=== PATIENT | female | born 1960 | race Caucasian/White ===

== ENCOUNTER 2016-09-20 09:30 | Inpatient (IN) | payer OTHER ==
--- NOTE | 2016-09-20 09:59 | PDOC ---
History of Present Illness <Edwin Olguin - Last Filed: 09/20/16 14:49> - History of Present Illness Initial Comments: 09/20/16 11:23 The pt is a 55 year old [place]ib[place] speaking female with a PMH of HTN, GERD, anxiety who presents to ED today complaining of palpitations and intermittent chest pain that is present since December 2015. She states that is got worse in the past month. Yesterday her chest pain lasted 30 minutes, mid chest, no radiation , no associated factors. Usually it lasts minutes and is associated with palpitations. She also states that she feels dizzy and has pain in LE B/L when ambulating which prevents her from her daily activities. She also reports dyspnea with exertion. She had ECHO done in 2016 and stress test that was nl. The pt denies chest pain now, SOB, LOC, N/V, diarrhea, blood in stool. She denies fever, chills, dysuria, increased frequency, urgency. She has PCP in [place] who prescribed her Lisinopril but she is not compliant due to insurance problems. Additionally she takes medications prescribed in [facility], like Kardiogran 5 mg , Mezim Forte <Diane Rubi - Last Filed: 09/20/16 15:20> - General Chief Complaint: Palpitations Stated Complaint: SOB, PALPITATIONS Time Seen by Provider: 09/20/16 09:47 Past History <Edwin Olguin - Last Filed: 09/20/16 14:49> - Past Medical History HTN: Yes - Surgical History Appendectomy: Yes - Psycho/Social/Smoking Cessation Hx Suicidal Ideation: No Smoking History: Never smoked Information on smoking cessation initiated: No Hx Alcohol Use: Yes (social) Drug/Substance Use Hx: No Substance Use Type: Alcohol <Diane Rubi - Last Filed: 09/20/16 15:20> - Past Medical History Allergies/Adverse Reactions: Allergies Allergy/AdvReac Type Severity Reaction Status Date / Time No Known Allergies Allergy Verified 09/20/16 09:39 Home Medications: Ambulatory Orders Alprazolam [Xanax] 0.25 mg PO Q12H #60 tablet MDD 2 01/01/16 Ranitidine [Zantac -] 150 mg PO BID #60 tablet 01/01/16 Review of Systems - Review of Systems Able to Perform ROS?: Yes Comments:: 09/20/16 11:36 REVIEW OF SYSTEMS CONSTITUTIONAL: Absent: fever, chills, diaphoresis, generalized weakness, malaise, loss of appetite, weight change HEENT: Absent: rhinorrhea, nasal congestion, throat pain, throat swelling, difficulty swallowing CARDIOVASCULAR: palpitations, chest pain, Absent: syncope, irregular heart rate, lightheadedness, peripheral edema RESPIRATORY: Absent: cough, shortness of breath, dyspnea with exertion, orthopnea, wheezing, stridor, hemoptysis GASTROINTESTINAL: mild epigastric pain Absent: abdominal distension, nausea, vomiting, diarrhea, constipation, melena, hematochezia GENITOURINARY: Absent: dysuria, frequency, urgency, hesitancy, hematuria, flank pain, genital pain MUSCULOSKELETAL: pain in lower extremities B/L Absent: arthralgia, joint swelling, back pain, neck pain SKIN: Absent: rash, itching, pallor NEUROLOGIC: Absent: headache, focal weakness or paresthesias, dizziness, unsteady gait, seizure, PSYCHIATRIC: Absent: anxiety, depression, suicidal or homicidal ideation, hallucinations. Is the patient limited Azeri proficient: Yes <Diane Rubi - Last Filed: 09/20/16 15:20> *Physical Exam - Vital Signs Last Vital Signs Temp Pulse Resp BP Pulse Ox 98 F 92 H 18 116/56 98 09/20/16 09:36 09/20/16 12:45 09/20/16 09:36 09/20/16 12:45 09/20/16 09:39 <Edwin Olguin - Last Filed: 09/20/16 14:49> - Vital Signs Last Vital Signs Temp Pulse Resp BP Pulse Ox 98 F 99 H 18 147/84 99 09/20/16 09:36 09/20/16 09:36 09/20/16 09:36 09/20/16 09:36 09/20/16 09:36 - Physical Exam Comments: 09/20/16 11:37 GENERAL: The patient is awake, alert, and fully oriented, in no acute distress. HEAD: Normal with no signs of trauma. EYES: PERRL, extraocular movements intact, sclera anicteric, conjunctiva clear. No ptosis. ENT: Ears normal, nares patent, oropharynx clear without exudates, moist mucous membranes. NECK: Trachea midline, full range of motion, supple, mild thyromegaly. LUNGS: Breath sounds equal, clear to auscultation bilaterally, no wheezes, no crackles, no accessory muscle use. HEART: Regular rate and rhythm, S1, S2 without murmur, rub or gallop. ABDOMEN: Soft, tender in epigastrium, nondistended, normoactive bowel sounds, no guarding, no rebound, no hepatosplenomegaly, no masses. EXTREMITIES: 2+ pulses, warm, well-perfused, no edema. NEUROLOGICAL: Normal speech, no facial asymmetry, no tongue deviation, motor 5/5 , gait not observed. PSYCH: Normal mood, normal affect. SKIN: Warm, dry, normal turgor, no rashes or lesions noted 09/20/16 15:17 <Diane Rubi - Last Filed: 09/20/16 15:20> ED Treatment Course - LABORATORY CBC & Chemistry Diagram: 09/20/16 11:40 09/20/16 11:40 - ADDITIONAL ORDERS Additional order review: Laboratory Results 09/20/16 09/20/16 09/20/16 11:40 11:40 11:40 Sodium 141 Potassium 4.4 Chloride 107 Carbon Dioxide 27 Anion Gap 7 L BUN 22 H D Creatinine 0.4 L D Creat Clearance w eGFR > 60 Random Glucose 91 Calcium 9.3 Total Bilirubin 0.8 D AST 24 D ALT 40 D Alkaline Phosphatase 52 Creatine Kinase 60 Troponin I 0.02 Total Protein 6.3 L Albumin 3.3 L D Lipase 122 TSH < 0.01 L D Free T4 2.84 H D Urine Color Ltyellow Urine Appearance Clear Urine pH 5.0 D Ur Specific Gilbert 1.023 Urine Protein Negative Urine Glucose (UA) Negative Urine Ketones Negative Urine Blood 1+ H Urine Nitrite Negative Urine Bilirubin Negative Urine Urobilinogen Negative Ur Leukocyte Esterase Trace H Urine RBC 2 Urine WBC 4 Ur Epithelial Cells Few Urine Mucus Rare 09/20/16 11:40 RBC 4.09 MCV 87.0 MCHC 33.8 RDW 12.8 MPV 9.5 Neutrophils % 56.7 D Lymphocytes % 28.3 D Monocytes % 13.9 H Eosinophils % 0.5 Basophils % 0.6 - RADIOLOGY Radiology Studies Ordered: Category Date Time Status CHEST X-RAY PORTABLE* [RAD] Stat Radiology 09/20/16 10:37 Completed - Medications Given in the ED: ED Medications Discontinued Medications Generic Name Dose Route Start Last Admin Trade Name Marily PRN Reason Stop Dose Admin Sodium Chloride 1,000 mls @ 1,000 mls/hr 09/20/16 10:37 09/20/16 11:50 Normal Saline - IV 09/20/16 11:36 1,000 mls/hr ASDIR STA Administration Pantoprazole Sodium 40 mg/ 100 mls @ 200 mls/hr 09/20/16 10:38 09/20/16 11:50 Sodium Chloride IVPB 09/20/16 11:07 200 mls/hr ONCE ONE Administration <Edwin Olguin - Last Filed: 09/20/16 14:49> - LABORATORY CBC & Chemistry Diagram: 09/20/16 11:40 09/20/16 11:40 <Diane Rubi - Last Filed: 09/20/16 15:20> Medical Decision Making - Medical Decision Making 09/20/16 11:41 The pt comes to Ed complaining of palpitations, dizziness, epigastric abdominal pain. Differential diagnosis include GERD, gastric ulcers, pancreatitis, ASC, hyperthyroidism, anxiety. We ordered cardiac profile, ECG, CBC, CMP, UA, CXR. We will give her Protonix 40 mg IV, Normal Saline IV. 09/20/16 13:58 The laboratory results are back. The pt was found to have low TSH. We added free T3, free T4 and called Dr Rosa-pet food deboner, admitting obs. <Diane Rubi - Last Filed: 09/20/16 15:20> *DC/Admit/Observation/Transfer - Discharge Dispostion Admit: Yes <Edwin Olguin - Last Filed: 09/20/16 14:49> - Discharge Dispostion Admit: Yes <Diane Rubi - Last Filed: 09/20/16 15:20> Diagnosis at time of Disposition: Palpitations, Hyperthyroidism - Discharge Dispostion Condition at time of disposition: Good
--- NOTE | 2016-09-20 10:31 | PDOC ---
[id number] I have performed the following: I have examined & evaluated the patient, The case was reviewed & discussed with the resident, I agree w/resident's findings & plan - HPI HPI: 09/27/16 09:42 see below - Physicial Exam PE: 09/27/16 09:42 see below - Medical Decision Making 55y F hx of htn, gerd, presents with palpitations and intermittent cp that has been worsening recently, last episode was yesterday described as mid chest associated with palpitations and some dizziness when she is ambulating and roth. There is no associated radaition, associated n/v, diaphoresis. pts states she is noncompliant with meds due to insurance issues. Pts exam is as documented by resident. labs noted for neg trop x 1, tsh very low suggestive hyperthyroidism that may be a cause of the pts palpitations. will admit to observation for acs r/o
[2016-09-20] MEDS ORDERED: SODIUM CHLORIDE 1,000 ML IV STA (10:37)
[2016-09-20] MEDS ORDERED: PANTOPRAZOLE SODIUM 40 MG in SODIUM CHLORIDE 100 ML IVPB ONE (10:38)
--- NOTE | 2016-09-20 10:58 | EKG ---
Test Reason : Blood Pressure : / mmHG Vent. Rate : 093 BPM Atrial Rate : 093 BPM P-R Int : 128 ms QRS Dur : 070 ms QT Int : 334 ms P-R-T Axes : 072 051 065 degrees QTc Int : 415 ms NORMAL SINUS RHYTHM NORMAL ECG WHEN COMPARED WITH ECG OF 30-DEC-2015 14:14, VENT. RATE HAS INCREASED BY 38 BPM Confirmed by TRUDY JOHNSON MD ([id number]) on 09/20/2016 10:58:12 AM Referred By: Confirmed By:TRUDY JOHNSON MD
[2016-09-20 12:03] LABS: BASOPHIL 0.6 % (0-2.0); EOSINOPHIL 0.5 % (0-4.5); MCH 29.5 pg (25.7-33.7); MCHC 33.8 g/dl (32.0-36.0); MEAN PLT VOLUME 9.5 fl (7.5-11.1); NEUTROPHILS 56.7 % (42.8-82.8); PLATELET COUNT 179 K/MM3 (134-434); RDW 12.8 % (11.6-15.6); WHITE BLOOD COUNT 5.1 K/mm3 (4.0-10.0)
[2016-09-20 12:04] LABS: URINE APPEARANCE CLEAR; URINE BILIRUBIN NEGATIVE (NEGATIVE); URINE COLOR LTYELLOW; URINE GLUCOSE (UA) NEGATIVE (NEGATIVE); URINE KETONE NEGATIVE (NEGATIVE); URINE NITRITE NEGATIVE (NEGATIVE); URINE PROTEIN NEGATIVE (NEGATIVE); URINE UROBILINOGEN NEGATIVE E.U./dl (0.2-1.0)
[2016-09-20] MEDS ORDERED: PANTOPRAZOLE SODIUM 100 ML IVPB ONE (12:04)
[2016-09-20 12:07] LABS: URINE BLOOD 1+ (NEGATIVE); URINE LEUK ESTERASE TRACE (NEGATIVE)
[2016-09-20 12:11] LABS: URINE MUCUS RARE; URINE RBC 2 /hpf (0-3); URINE WBC 4 /hpf (3-5)
[2016-09-20 12:36] LABS: ALBUMIN 3.3 g/dl (3.4-5.0); ANION GAP 7 (8-16); BILIRUBIN,TOTAL 0.8 mg/dL (0.2-1.0); CALCIUM 9.3 mg/dL (8.5-10.1); CO2 27 mmol/L (21-32); CREATININE 0.4 mg/dL (0.55-1.02); GLUCOSE,RANDOM 91 mg/dL (74-106); SGOT/AST 24 U/L (15-37)
[2016-09-20 12:41] LABS: ALK PHOS 52 U/L (45-117); SGPT/ALT 40 U/L (12-78); TOT PROT 6.3 g/dl (6.4-8.2); TROPONIN I 0.02 ng/ml (0.00-0.05)
[2016-09-20 12:46] LABS: THYROID STIMULATING HORMONE < 0.01 uIU/ml (0.358-3.74)
[2016-09-20 14:09] LABS: FREE T4 2.84 ng/dl (0.76-1.46)
--- NOTE | 2016-09-20 17:32 | HP ---
CHIEF COMPLAINT: " I have palpitations and chest pain" PCP: HISTORY OF PRESENT ILLNESS: This is a 55 yo f with PMH of HTN, gerd and anxiety, who presents to ed with palpitations and chest pain. She states that she had occasional chest pain winter 2015, at which time she had a negative TTE and stress test in this hospital. At that time she was seen by Dr Patel, who suspected mitral valve prolapse syndrome but TTE was negative for such. Her chest pain then resolved but returned 3 mo ago, it is intermittant, lasting between 3 min and 30 min, reproducibl by pressing on chest wall. She has constant palpitaions, aggravated by physical activity. She also has increased exertional dyspnea and lightheadedness. She states that lately her legs have been stiff and achy, aggravated by activity and over the past few days she developed severe hand tremors and couldnt write. She admits to 10 lb weight gain over the past year, heat and cold intolerance, sweating and anxiety. She denies family history of thyroid disease. she has had recent rhinorrhea. She also reports some epigastric abd pain and heartburn after meals as well as mild nausea. She denies vomiting, diarrhea, dysuria, loc, edema. Her PCP prescribed lisiniopril but she has been noncompliant with it due to insurance issues and [facility] ER course was notable for: (1)labs (2)EKG, CHR (3)IVF, PPI Recent Travel: denies PAST MEDICAL HISTORY: as above PAST SURGICAL HISTORY: appendectomy Social History: lives at home Smoking: past mild smoker Alcohol:denies Drugs: denies Family History: CAD Allergies No Known Allergies Allergy (Verified 09/20/16 09:39) HOME MEDICATIONS: Home Medications Medication Instructions Recorded Alprazolam [Xanax] 0.25 mg PO Q12H #60 tablet MDD 2 01/01/16 Ranitidine [Zantac -] 150 mg PO BID #60 tablet 01/01/16 REVIEW OF SYSTEMS CONSTITUTIONAL: Absent: fever, chills, loss of appetite HEENT: Absent: throat pain, throat swelling, difficulty swallowing, visual changes CARDIOVASCULAR: Absent: syncope, irregular heart rate, peripheral edema RESPIRATORY: Absent: cough, shortness of breath, orthopnea, wheezing, stridor, hemoptysis GASTROINTESTINAL: Absent: abdominal distension, vomiting, diarrhea, constipation, melena, hematochezia GENITOURINARY: Absent: dysuria MUSCULOSKELETAL: Absent: back pain, neck pain SKIN: Absent: rash, itching, pallor HEMATOLOGIC/IMMUNOLOGIC: Absent: frequent infections ENDOCRINE: + unexplained weight gain, unexplained weight loss, heat intolerance, cold intolerance NEUROLOGIC: Absent: focal weakness or paresthesias, seizure, mental status changes, bladder or bowel incontinence PSYCHIATRIC: Absent: depression, suicidal or homicidal ideation, hallucinations. PHYSICAL EXAMINATION Vital Signs - 24 hr 09/20/16 16:53 Temperature 97.9 F Pulse Rate [ 91 H Apical] Respiratory 16 Rate Blood Pressure 107/62 [Left Arm] O2 Sat by Pulse 98 Oximetry (%) GENERAL: Awake, alert, and fully oriented, in no acute distress. HEAD: Normal with no signs of trauma. EYES: Pupils equal, round and reactive to light, extraocular movements intact, sclera anicteric, conjunctiva clear. No lid lag. EARS, NOSE, THROAT: Moist mucous membranes. NECK: supple, no tyromegaly, nodular thyroid gland, nontender, no adenopathy LUNGS: Breath sounds equal, clear to auscultation bilaterally. HEART: Regular rate and rhythm, normal S1 and S2 ABDOMEN: soft, mildy tender epigastric region, + bowel sounds, no masses MUSCULOSKELETAL: No CVA tenderness, tender LE b/l . UPPER EXTREMITIES: 2+ pulses, warm, well-perfused. No cyanosis. No clubbing. No peripheral edema, + tremors . LOWER EXTREMITIES: 2+ pulses, warm, well-perfused. diffusely tender No peripheral edema. NEUROLOGICAL: Cranial nerves II-XII grossly intact. Normal speech. PSYCHIATRIC: Cooperative. Good eye contact. Appropriate mood and affect. SKIN: Warm, dry ASSESSMENT/PLAN: Symptomatic hyperthyroidism -TSH <0.01 -Free t4 2.84 -free t3 p/d -classic clinical presentation -symptomatic management for now with IVF , beta andres and prn Tylenol -Thyroid US -Endocrinology consult -send TRAb to r/o Graves disease -repeat troponin -TTE -EKG AM -Tele monitoring HTN -now normotensive -possinly related to hyperthyroidism GERD -PPI FEN NS@100 lytes stable na restricted diet Dispo: admit tele Problem List - Problem (1) Anxiety disorder Code(s): F41.9 - ANXIETY DISORDER, UNSPECIFIED Qualifiers: Anxiety disorder type: generalized anxiety disorder Qualified Code(s ): F41.1 - Generalized anxiety disorder (2) Atypical chest pain Code(s): R07.89 - OTHER CHEST PAIN (3) Chest pain Code(s): R07.9 - CHEST PAIN, UNSPECIFIED Qualifiers: Chest pain type: unspecified Qualified Code(s): R07.9 - Chest pain, unspecified (4) DVT prophylaxis Code(s): NSD9540 - (5) Hyperthyroidism Code(s): E05.90 - THYROTOXICOSIS, UNSP WITHOUT THYROTOXIC CRISIS OR STORM (6) Palpitations Code(s): R00.2 - PALPITATIONS Visit type - Emergency Visit Emergency Visit: Yes ED Registration Date: 09/20/16 Care time: The patient presented to the Emergency Department on the above date and was hospitalized for further evaluation of their emergent condition. - New Patient This patient is new to me today: Yes Date on this admission: 09/20/16 - Critical Care Critical Care patient: No
[2016-09-20] MEDS ORDERED: ACETAMINOPHEN 325 MG TABLET (FP) PO PRN (18:59)
[2016-09-20] MEDS ORDERED: ATENOLOL 25 MG TABLET (FP) PO SCH (19:00)
[2016-09-20] MEDS ORDERED: SODIUM CHLORIDE 1,000 ML IV SCH (19:00)
[2016-09-20 19:14] VITALS: BMI 21.9
--- NOTE | 2016-09-20 19:25 | PN ---
Teaching Attending Note Name of Resident: Starr Mercedes ATTENDING PHYSICIAN STATEMENT I saw and evaluated the patient. I reviewed the resident's note and discussed the case with the resident. I agree with the resident's findings and plan as documented. Patient is a 55 yo female presented palpitations, hot flashes with chest pain, had a work up in 2016 ,which was negative. at bedside. Vital Signs Temperature 98.2 F 09/20/16 19:06 Pulse Rate 92 H 09/20/16 19:06 Respiratory Rate 20 09/20/16 19:06 Blood Pressure 112/60 09/20/16 19:06 O2 Sat by Pulse Oximetry (%) 98 09/20/16 19:06 GENERAL: Awake, alert, and fully oriented, in no acute distress. HEAD: Normal with no signs of trauma. EYES: Pupils equal, round and reactive to light, extraocular movements intact, sclera anicteric, conjunctiva clear. No lid lag. EARS, NOSE, THROAT: Moist mucous membranes. NECK: supple, nodular thyroid gland, nontender, no adenopathy LUNGS: Breath sounds equal, clear to auscultation bilaterally. HEART: Regular rate and rhythm, normal S1 and S2 ABDOMEN: soft, NT, NR,+ bowel sounds, no masses appreciated MUSCULOSKELETAL: No CVA tenderness, tender LE b/l . EXTREMITIES: 2+ pulses, warm, well-perfused. NEUROLOGICAL: Cranial nerves II-XII grossly intact. Normal speech. PSYCHIATRIC: Cooperative. Good eye contact. Appropriate mood and affect. CBCD WBC 5.1 K/mm3 (4.0-10.0) D 09/20/16 11:40 RBC 4.09 M/mm3 (3.60-5.2) 09/20/16 11:40 Hgb 12.1 GM/dL (10.7-15.3) 09/20/16 11:40 Hct 35.6 % (32.4-45.2) 09/20/16 11:40 MCV 87.0 fl (80-96) 09/20/16 11:40 MCHC 33.8 g/dl (32.0-36.0) 09/20/16 11:40 RDW 12.8 % (11.6-15.6) 09/20/16 11:40 Plt Count 179 K/MM3 (134-434) D 09/20/16 11:40 MPV 9.5 fl (7.5-11.1) 09/20/16 11:40 CMP Sodium 141 mmol/L (136-145) 09/20/16 11:40 Potassium 4.4 mmol/L (3.5-5.1) 09/20/16 11:40 Chloride 107 mmol/L (98-107) 09/20/16 11:40 Carbon Dioxide 27 mmol/L (21-32) 09/20/16 11:40 Anion Gap 7 (8-16) L 09/20/16 11:40 BUN 22 mg/dL (7-18) H D 09/20/16 11:40 Creatinine 0.4 mg/dL (0.55-1.02) L D 09/20/16 11:40 Creat Clearance w eGFR > 60 (>60) 09/20/16 11:40 Random Glucose 91 mg/dL (74-106) 09/20/16 11:40 Calcium 9.3 mg/dL (8.5-10.1) 09/20/16 11:40 Total Bilirubin 0.8 mg/dL (0.2-1.0) D 09/20/16 11:40 AST 24 U/L (15-37) D 09/20/16 11:40 ALT 40 U/L (12-78) D 09/20/16 11:40 Alkaline Phosphatase 52 U/L (45-117) 09/20/16 11:40 Total Protein 6.3 g/dl (6.4-8.2) L 09/20/16 11:40 Albumin 3.3 g/dl (3.4-5.0) L D 09/20/16 11:40 CARDIAC ENZYMES Creatine Kinase 60 IU/L (26-192) 09/20/16 11:40 Troponin I 0.02 ng/ml (0.00-0.05) 09/20/16 11:40 Home Medications Medication Instructions Recorded NK [No Known Home Medication] 09/20/16 Laboratory Tests 09/20/16 09/20/16 11:40 13:00 TSH < 0.01 L D Free T4 2.84 H D Free T3 pending ASSESSMENT AND PLAN: This is a 55 yo f with PMH of HTN, gerd and anxiety, who presents to ed with palpitations and chest pain. # Acute hyperthyroidism; pending FT3 ; US of thyroid r/o nodules ;Endocrine consult. # HTN given atenelol in ER. will start the patient on Propranalol 10mg in am DVT px: early ambulation
[2016-09-20] MEDS: HEPARIN NA (PORCINE) 5,000 UNITS/ML 1ML VIAL SQ SCH (21:10)
[2016-09-20] MEDS: SODIUM CHLORIDE 0.45% 1,000 ML IV SCH (21:10)
[2016-09-21] MEDS: SODIUM CHLORIDE 0.45% 1,000 ML IV SCH ×2 (06:24→21:07)
[2016-09-21 07:08] LABS: MCH 29.8 pg (25.7-33.7); MCHC 34.2 g/dl (32.0-36.0); MEAN PLT VOLUME 9.7 fl (7.5-11.1); PLATELET COUNT 152 K/MM3 (134-434); RDW 12.6 % (11.6-15.6); WHITE BLOOD COUNT 3.9 K/mm3 (4.0-10.0)
[2016-09-21 07:31] LABS: ALBUMIN 2.9 g/dl (3.4-5.0); ALK PHOS 44 U/L (45-117); ANION GAP 9 (8-16); BILIRUBIN,TOTAL 0.9 mg/dL (0.2-1.0); CALCIUM 8.8 mg/dL (8.5-10.1); CO2 26 mmol/L (21-32); CREATININE 0.4 mg/dL (0.55-1.02); GLUCOSE,RANDOM 89 mg/dL (74-106); SGOT/AST 24 U/L (15-37); SGPT/ALT 38 U/L (12-78); TOT PROT 5.4 g/dl (6.4-8.2)
[2016-09-21] MEDS: HEPARIN NA (PORCINE) 5,000 UNITS/ML 1ML VIAL SQ SCH ×2 (09:29→21:07)
[2016-09-21] MEDS ORDERED: traMADol HCL 50 MG TABLET PO ONE (11:45)
[2016-09-21] MEDS ORDERED: PROPRANOLOL HCL 10 MG TABLET (FP) PO ONE (12:00)
[2016-09-21 13:04] LABS: TROPONIN I < 0.02 ng/ml (0.00-0.05)
--- NOTE | 2016-09-21 13:53 | PN ---
Physical Exam: SUBJECTIVE: Patient seen and examined Patient is feeling better post Inderal 10mg and also given one dose of Ultram which helped her pain. OBJECTIVE: Vital Signs Temperature 98.7 F 09/21/16 09:01 Pulse Rate 105 H 09/21/16 09:01 Respiratory Rate 20 09/21/16 09:01 Blood Pressure 121/83 09/21/16 09:01 O2 Sat by Pulse Oximetry (%) 100 09/21/16 09:00 GENERAL: The patient is awake, alert, and fully oriented, in no acute distress. HEAD: Normal with no signs of trauma. EYES: PERRL, extraocular movements intact, sclera anicteric, conjunctiva clear. No ptosis. ENT: Ears normal,oropharynx clear without exudates, moist mucous membranes. NECK: Trachea midline, full range of motion, supple. LUNGS: Breath sounds equal, clear to auscultation bilaterally, no wheezes, no crackles, no accessory muscle use. HEART: Regular rate and rhythm, S1, S2 without murmur, rub or gallop. ABDOMEN: Soft, nontender, nondistended, normoactive bowel sounds, no guarding, no rebound, no hepatosplenomegaly, no masses. EXTREMITIES: 2+ pulses, warm, well-perfused, no edema. NEUROLOGICAL: Cranial nerves II through XII grossly intact. Normal speech, gait not observed. PSYCH: Normal mood, normal affect. SKIN: Warm, dry, normal turgor, no rashes or lesions noted CBCD WBC 3.9 K/mm3 (4.0-10.0) L 09/21/16 05:20 RBC 3.72 M/mm3 (3.60-5.2) 09/21/16 05:20 Hgb 11.1 GM/dL (10.7-15.3) 09/21/16 05:20 Hct 32.4 % (32.4-45.2) 09/21/16 05:20 MCV 87.0 fl (80-96) 09/21/16 05:20 MCHC 34.2 g/dl (32.0-36.0) 09/21/16 05:20 RDW 12.6 % (11.6-15.6) 09/21/16 05:20 Plt Count 152 K/MM3 (134-434) 09/21/16 05:20 MPV 9.7 fl (7.5-11.1) 09/21/16 05:20 CMP Sodium 142 mmol/L (136-145) 09/21/16 05:20 Potassium 3.9 mmol/L (3.5-5.1) 09/21/16 05:20 Chloride 107 mmol/L (98-107) 09/21/16 05:20 Carbon Dioxide 26 mmol/L (21-32) 09/21/16 05:20 Anion Gap 9 (8-16) 09/21/16 05:20 BUN 21 mg/dL (7-18) H 09/21/16 05:20 Creatinine 0.4 mg/dL (0.55-1.02) L 09/21/16 05:20 Creat Clearance w eGFR > 60 (>60) 09/21/16 05:20 Random Glucose 89 mg/dL (74-106) 09/21/16 05:20 Calcium 8.8 mg/dL (8.5-10.1) 09/21/16 05:20 Total Bilirubin 0.9 mg/dL (0.2-1.0) 09/21/16 05:20 AST 24 U/L (15-37) 09/21/16 05:20 ALT 38 U/L (12-78) 09/21/16 05:20 Alkaline Phosphatase 44 U/L (45-117) L 09/21/16 05:20 Total Protein 5.4 g/dl (6.4-8.2) L 09/21/16 05:20 Albumin 2.9 g/dl (3.4-5.0) L 09/21/16 05:20 CARDIAC ENZYMES Creatine Kinase 67 IU/L (26-192) 09/21/16 11:40 Troponin I < 0.02 ng/ml (0.00-0.05) 09/21/16 11:40 Current Medications Generic Name Dose Route Start Last Admin Trade Name Freq PRN Reason Stop Dose Admin Acetaminophen 650 mg 09/20/16 18:59 09/21/16 00:10 Tylenol - PO 650 mg Q4H PRN Administration FEVER OR PAIN Heparin Sodium (Porcine) 5,000 unit 09/20/16 22:00 09/21/16 09:29 Heparin - SQ 5,000 unit BID SU Administration Sodium Chloride 1,000 mls @ 100 mls/hr 09/20/16 19:45 09/21/16 06:24 1/2 Normal Saline IV 09/22/16 05:44 100 mls/hr ASDIR SU Administration Home Medications Medication Instructions Recorded NK [No Known Home Medication] 09/20/16 Laboratory Tests 09/20/16 09/20/16 11:40 13:00 TSH < 0.01 L D Free T4 2.84 H D Free T3 18.6 H ASSESSMENT/PLAN: This is a 55 yo f with PMHx of HTN, gerd and anxiety, who presents to ED. with palpitations and chest pain c/o having cold intolerance, weight . She states that she had occasional chest pain winter 2015, at which time she had a negative TTE and stress test in this hospital. # Newly diagnosed hyperthyroidism with T3 thyrotoxicosis:TSH <0.01 ; Free t4 2.84 , and FT3 18.6 , beta andres ordered nonselective BB, Thyroid US ordered, Endocrinology consult appreciated. # Atypical chest pain resolved given a dose of Ultram with negative Troponins. #HTN on Inderal x1 dose given DVT px: Heparin Visit type - Emergency Visit Emergency Visit: Yes ED Registration Date: 09/20/16 Care time: The patient presented to the Emergency Department on the above date and was hospitalized for further evaluation of their emergent condition. - New Patient This patient is new to me today: No - Critical Care Critical Care patient: No - Discharge Referral Referred to [facility] Yes Physician Referral: Rey Lord MD (Int Med) (follow thyroid function test )
--- NOTE | 2016-09-21 19:01 | CONSULT ---
Consult Consult Specialty:: endocrine Referred by:: erik bacon md Reason for Consultation:: hyperthyroidism - History of Present Illness Chief Complaint: weight loss and palpitation History of Present Illness: 55 yo f with PMH of HTN, gerd and anxiety, who presents to ed with palpitations and chest pain. She states that she had occasional chest pain winter 2015, at which time she had a negative TTE and stress test in this hospital. At that time she was seen by Dr Patel, who suspected mitral valve prolapse syndrome but TTE was negative for such. Her chest pain then resolved but returned 3 mo ago, it is intermittant, lasting between 3 min and 30 min, reproducibl by pressing on chest wall. She has constant palpitaions, aggravated by physical activity. She also has increased exertional dyspnea and lightheadedness. She states that lately her legs have been stiff and achy, aggravated by activity and over the past few days she developed severe hand tremors and couldnt write. She admits to 10 lb weight gain over the past year, heat and cold intolerance, sweating and anxiety. She denies family history of thyroid disease. she has had recent rhinorrhea. She also reports some epigastric abd pain and heartburn after meals as well as mild nausea. She denies throat pain nausea or vomiting, - History Source History Provided By: Patient Limitations to Obtaining History: Clinical Condition - Past Medical History ...LMP Comment: MENOPAUSAL ...: No - Alcohol/Substance Use Hx Alcohol Use: Yes (social) - Smoking History Smoking history: Never smoked Home Medications - Allergies Allergies/Adverse Reactions: Allergies Allergy/AdvReac Type Severity Reaction Status Date / Time No Known Allergies Allergy Verified 09/20/16 09:39 - Home Medications Home Medications: Ambulatory Orders NK [No Known Home Medication] 09/20/16 Review of Systems - Review of Systems Constitutional: reports: Weakness Eyes: reports: No Symptoms HENT: reports: No Symptoms Neck: reports: No Symptoms Cardiovascular: reports: Palpitations, Shortness of Breath Respiratory: reports: SOB on Exertion Gastrointestinal: reports: No Symptoms Genitourinary: reports: No Symptoms Breasts: reports: No Symptoms Reported Musculoskeletal: reports: Extremity Pain, Muscle Pain, Muscle Cramps, Muscle Weakness Integumentary: reports: No Symptoms Neurological: reports: Tremors Endocrine: reports: Unexplained Weight Loss Psychiatric: reports: Anxiety Physical Exam Vital Signs: Vital Signs Temperature 98.8 F 09/21/16 14:00 Pulse Rate 90 09/21/16 14:00 Respiratory Rate 20 09/21/16 14:00 Blood Pressure 113/65 09/21/16 14:00 O2 Sat by Pulse Oximetry (%) 100 09/21/16 09:00 Constitutional: Yes: Anxious Eyes: Yes: EOM Intact HENT: Yes: Normocephalic Neck: Yes: Thyromegaly Cardiovascular: Yes: Tachycardia Respiratory: Yes: CTA Bilaterally Gastrointestinal: Yes: Normal Bowel Sounds ...Rectal Exam: Yes: Deferred Renal/: Yes: WNL Breast(s): Yes: WNL Musculoskeletal: Yes: WNL Extremities: Yes: WNL Neurological: Yes: Tremors, Weakness Labs: CBC, BMP 09/21/16 05:20 09/21/16 05:20 Problem List - Problems (1) Atypical chest pain Code(s): R07.89 - OTHER CHEST PAIN (2) Hyperthyroidism Code(s): E05.90 - THYROTOXICOSIS, UNSP WITHOUT THYROTOXIC CRISIS OR STORM (3) Palpitations Code(s): R00.2 - PALPITATIONS Assessment/Plan Current Active Problems Anxiety disorder (Acute) Atypical chest pain (Acute) Chest pain (Acute) DVT prophylaxis (Acute) Hyperthyroidism (Acute) Labile essential hypertension (Acute) Mitral valve prolapse syndrome (Acute) Palpitations (Acute) Panic attack (Acute) hyperthyroidism/t3 thyrotoxicosis hyperthyroid clinically ck thyroid sonogram will need i123 scan and sonogram as outpatient follow up Abnormal Lab Results 09/20/16 09/21/16 09/21/16 13:00 05:20 05:20 WBC 3.9 L BUN 21 H Creatinine 0.4 L Alkaline Phosphatase 44 L Total Protein 5.4 L Albumin 2.9 L TSH Free T3 18.6 H 09/21/16 16:45 WBC BUN Creatinine Alkaline Phosphatase Total Protein Albumin TSH < 0.01 L Free T3 Laboratory Tests 09/20/16 09/20/16 11:40 13:00 TSH < 0.01 L D Free T4 2.84 H D Free T3 18.6 H plan : tapazole 10mg tid follow up tsh and free t4 t3 outpatient
[2016-09-21] MEDS: METHIMAZOLE 10 MG TABLET (FP) PO SCH (20:58)
[2016-09-22] MEDS: METHIMAZOLE 10 MG TABLET (FP) PO SCH ×3 (06:39→22:05)
[2016-09-22] MEDS ORDERED: PT OWN MED DRAWER 7, Y5N ONE (09:06)
[2016-09-22] MEDS: HEPARIN NA (PORCINE) 5,000 UNITS/ML 1ML VIAL SQ SCH ×2 (09:21→22:05)
--- NOTE | 2016-09-22 10:18 | CON.CARD ---
Consult Consult Specialty:: Cardiology Referred by:: Hospitalist Medicine Reason for Consultation:: Chest pain, palpitations - History of Present Illness Chief Complaint: Chest pain, palpitations History of Present Illness: 55 yo f with PMH of HTN, gerd and anxiety with h/o atypical chest pain negative TTE and stress test 12/2015, palpitations, dyspnea, denies near or true syncope , orthopnea, PND or LE edema, has not been compliant with meds due to lack of insurance. Found to be hyperthyroid and started on Tapazole and Inderal. Recent Travel: denies PAST MEDICAL HISTORY: as above PAST SURGICAL HISTORY: appendectomy Social History: lives at home Smoking: past mild smoker Alcohol:denies Drugs: denies Family History: CAD Allergies No Known Allergies Allergy (Verified 09/20/16 09:39) - History Source History Provided By: Patient Limitations to Obtaining History: No Limitations - Past Medical History ...LMP Comment: MENOPAUSAL ...: No Endocrine: Yes: Hyperthyroidism - Alcohol/Substance Use Hx Alcohol Use: Yes (social) - Smoking History Smoking history: Never smoked Home Medications - Allergies Allergies/Adverse Reactions: Allergies Allergy/AdvReac Type Severity Reaction Status Date / Time No Known Allergies Allergy Verified 09/20/16 09:39 - Home Medications Home Medications: Ambulatory Orders NK [No Known Home Medication] 09/20/16 Review of Systems - Review of Systems Cardiovascular: reports: Chest Pain, Palpitations, Shortness of Breath Vital Signs: Vital Signs Temperature 97.3 F L 09/22/16 08:53 Pulse Rate 92 H 09/22/16 08:53 Respiratory Rate 18 09/22/16 08:54 Blood Pressure 125/89 09/22/16 08:53 O2 Sat by Pulse Oximetry (%) 100 09/22/16 08:54 Constitutional: Yes: No Distress, Calm Neck: Yes: Supple Respiratory: Yes: Regular, CTA Bilaterally Gastrointestinal: Yes: Normal Bowel Sounds, Soft Cardiovascular: Yes: Regular Rate and Rhythm JVD: No Carotid Bruit: No Heart Sounds: Yes: S1, S2 Edema: No - Other Data Labs, Other Data: CBC, BMP 09/21/16 05:20 09/21/16 05:20 Troponin, BNP 09/21/16 11:40 Troponin I < 0.02 Troponin, BNP 09/21/16 11:40 Troponin I < 0.02 NSR @ [address]-t changes. Ejection Fraction %: LVEF > or = 40 % Imaging - Results Chest X-ray: Report Reviewed (NAD) Problem List - Problems (1) Anxiety disorder Code(s): F41.9 - ANXIETY DISORDER, UNSPECIFIED Qualifiers: Anxiety disorder type: generalized anxiety disorder Qualified Code(s ): F41.1 - Generalized anxiety disorder (2) Atypical chest pain Code(s): R07.89 - OTHER CHEST PAIN (3) Hyperthyroidism Code(s): E05.90 - THYROTOXICOSIS, UNSP WITHOUT THYROTOXIC CRISIS OR STORM (4) Palpitations Code(s): R00.2 - PALPITATIONS Assessment/Plan 01/01/2016 Echo: Normal LV size and fxn, mild MR, TR 01/01/16 ETT Negative for ischemia after 10 min, stage IV 87% MPHR 1. Chest pain syndrome with atypical features and palpitations referable to #2 2. Hyperthyroidism 3. Anxiety disorder PLAN: 1. F/u thyroid u/s and scan, tapazole started, agree with Inderal LA as tolerated 2. Ruled out [place], repeat echo to assess LV and valve fxn 3. Thank you for consultative opportunity
--- NOTE | 2016-09-22 10:57 | PN ---
Progress Note (short form) - Note Progress Note: hyperthyroidism clinically and biochemically evident symptoms therapy started will need close follow up for thyroid scan and sonogram as well as tfts results Laboratory Results - last 24 hr 09/21/16 09/21/16 11:40 16:45 Creatine Kinase 67 Troponin I < 0.02 TSH < 0.01 L Laboratory Results - last 24 hr Laboratory Results - last 24 hr Laboratory Tests 09/21/16 05:20 WBC 3.9 L RBC 3.72 Hgb 11.1 MCV 87.0 RDW 12.6 Plt Count 152 MPV 9.7 Current Active Problems Anxiety disorder (Acute) Atypical chest pain (Acute) Chest pain (Acute) DVT prophylaxis (Acute) Hyperthyroidism (Acute) Labile essential hypertension (Acute) Mitral valve prolapse syndrome (Acute) Palpitations (Acute) Panic attack (Acute) plan: repeat cbc changes noted wbc follow up i123 scan outpatient will need repeat tfts and outpatient follow up to normalize thyroid function Problem List - Problems (1) Atypical chest pain Code(s): R07.89 - OTHER CHEST PAIN (2) Hyperthyroidism Code(s): E05.90 - THYROTOXICOSIS, UNSP WITHOUT THYROTOXIC CRISIS OR STORM (3) Palpitations Code(s): R00.2 - PALPITATIONS
--- NOTE | 2016-09-22 11:28 | EKG ---
Test Reason : Blood Pressure : / mmHG Vent. Rate : 095 BPM Atrial Rate : 095 BPM P-R Int : 138 ms QRS Dur : 078 ms QT Int : 338 ms P-R-T Axes : 069 094 075 degrees QTc Int : 424 ms NORMAL SINUS RHYTHM RIGHTWARD AXIS BORDERLINE ECG WHEN COMPARED WITH ECG OF 20-SEP-2016 09:41, NO SIGNIFICANT CHANGE WAS FOUND Confirmed by ANAM SQUIRES MD ([id number]) on 09/22/2016 11:28:20 AM Referred By: ROCKY Confirmed By:ANAM SQUIRES MD
--- NOTE | 2016-09-22 11:31 | EKG ---
Test Reason : Blood Pressure : / mmHG Vent. Rate : 085 BPM Atrial Rate : 085 BPM P-R Int : 136 ms QRS Dur : 076 ms QT Int : 352 ms P-R-T Axes : 079 090 086 degrees QTc Int : 418 ms NORMAL SINUS RHYTHM RIGHTWARD AXIS BORDERLINE ECG WHEN COMPARED WITH ECG OF 21-SEP-2016 08:50, NO SIGNIFICANT CHANGE WAS FOUND Confirmed by ANAM SQUIRES MD ([id number]) on 09/22/2016 11:31:15 AM Referred By: Confirmed By:ANAM SQUIRES MD
--- NOTE | 2016-09-22 14:41 | PN ---
Physical Exam: SUBJECTIVE: Patient seen and examined Patient is feeling better than yesterday still feeling of having palpitation son ambulations OBJECTIVE: Vital Signs Temperature 97.3 F L 09/22/16 08:53 Pulse Rate 92 H 09/22/16 08:53 Respiratory Rate 18 09/22/16 08:54 Blood Pressure 125/89 09/22/16 08:53 O2 Sat by Pulse Oximetry (%) 100 09/22/16 08:54 GENERAL: The patient is awake, alert, and fully oriented, in no acute distress. HEAD: Normal with no signs of trauma. EYES: PERRL, extraocular movements intact, sclera anicteric, conjunctiva clear. No ptosis. ENT: Ears normal, nares patent, oropharynx clear without exudates, moist mucous membranes. NECK: Trachea midline, full range of motion, supple. LUNGS: Breath sounds equal, clear to auscultation bilaterally, no wheezes, no crackles, no accessory muscle use. HEART: Regular rate and rhythm, S1, S2 without murmur, rub or gallop. ABDOMEN: Soft, nontender, nondistended, normoactive bowel sounds, no guarding, no rebound, no hepatosplenomegaly, no masses. EXTREMITIES: 2+ pulses, warm, well-perfused, no edema. NEUROLOGICAL: Cranial nerves II through XII grossly intact. Normal speech, gait not observed. PSYCH: Normal mood, normal affect. SKIN: Warm, dry, normal turgor, no rashes or lesions noted CBCD WBC 3.9 K/mm3 (4.0-10.0) L 09/21/16 05:20 RBC 3.72 M/mm3 (3.60-5.2) 09/21/16 05:20 Hgb 11.1 GM/dL (10.7-15.3) 09/21/16 05:20 Hct 32.4 % (32.4-45.2) 09/21/16 05:20 MCV 87.0 fl (80-96) 09/21/16 05:20 MCHC 34.2 g/dl (32.0-36.0) 09/21/16 05:20 RDW 12.6 % (11.6-15.6) 09/21/16 05:20 Plt Count 152 K/MM3 (134-434) 09/21/16 05:20 MPV 9.7 fl (7.5-11.1) 09/21/16 05:20 CMP Sodium 142 mmol/L (136-145) 09/21/16 05:20 Potassium 3.9 mmol/L (3.5-5.1) 09/21/16 05:20 Chloride 107 mmol/L (98-107) 09/21/16 05:20 Carbon Dioxide 26 mmol/L (21-32) 09/21/16 05:20 Anion Gap 9 (8-16) 09/21/16 05:20 BUN 21 mg/dL (7-18) H 09/21/16 05:20 Creatinine 0.4 mg/dL (0.55-1.02) L 09/21/16 05:20 Creat Clearance w eGFR > 60 (>60) 09/21/16 05:20 Random Glucose 89 mg/dL (74-106) 09/21/16 05:20 Calcium 8.8 mg/dL (8.5-10.1) 09/21/16 05:20 Total Bilirubin 0.9 mg/dL (0.2-1.0) 09/21/16 05:20 AST 24 U/L (15-37) 09/21/16 05:20 ALT 38 U/L (12-78) 09/21/16 05:20 Alkaline Phosphatase 44 U/L (45-117) L 09/21/16 05:20 Total Protein 5.4 g/dl (6.4-8.2) L 09/21/16 05:20 Albumin 2.9 g/dl (3.4-5.0) L 09/21/16 05:20 CARDIAC ENZYMES Creatine Kinase 67 IU/L (26-192) 09/21/16 11:40 Troponin I < 0.02 ng/ml (0.00-0.05) 09/21/16 11:40 Laboratory Results - last 24 hr 09/21/16 16:45 TSH < 0.01 L Active Medications Generic Name Dose Route Start Last Admin Trade Name Freq PRN Reason Stop Dose Admin Acetaminophen 650 mg 09/20/16 18:59 09/21/16 00:10 Tylenol - PO 650 mg Q4H PRN Administration FEVER OR PAIN Heparin Sodium (Porcine) 5,000 unit 09/20/16 22:00 09/22/16 09:21 Heparin - SQ 5,000 unit BID SU Administration Methimazole 10 mg 09/21/16 19:00 09/22/16 14:28 Tapazole - PO 10 mg TID SU Administration Propranolol HCl 60 mg 09/22/16 10:00 09/22/16 12:12 Inderal La - PO 60 mg DAILY SU Administration Laboratory Tests 09/20/16 09/20/16 09/20/16 11:40 11:40 13:00 WBC 5.1 D TSH < 0.01 L D Free T4 2.84 H D Free T3 18.6 H TSH Receptor Block Ab 09/20/16 09/21/16 21:00 05:20 WBC 3.9 L TSH Free T4 Free T3 TSH Receptor Block Ab Pending This is a 55 yo f with PMHx of HTN, gerd and anxiety, who presents to ED. with palpitations and chest pain c/o having cold intolerance, weight . She states that she had occasional chest pain winter 2015, at which time she had a negative TTE and stress test in this hospital. # Newly diagnosed hyperthyroidism with T3 thyrotoxicosis:TSH <0.01 ; Free t4 2.84 , and FT3 18.6 , beta andres ordered nonselective BB Inderal 60mg daily for now.Thyroid US ordered, Endocrinology consult appreciated. # Acute Leukopenia noted in today's blood work, not sure due to Tapazole or now , will recheck the CBC in am if keeps going down might need dose adjustment and will discuss with . # Atypical chest pain resolved given a dose of Ultram with negative Troponins. #HTN on Inderal 60mg Sr continue DVT px: Heparin Visit type - Emergency Visit Emergency Visit: Yes ED Registration Date: 09/20/16 Care time: The patient presented to the Emergency Department on the above date and was hospitalized for further evaluation of their emergent condition. - New Patient This patient is new to me today: No - Critical Care Critical Care patient: No - Discharge Referral Referred to [facility] Med P.C.: Yes Physician Referral: Rey Lord MD (Int Med)
[2016-09-23] MEDS: METHIMAZOLE 10 MG TABLET (FP) PO SCH ×2 (06:41→14:28)
[2016-09-23] MEDS ORDERED: PT OWN MED DRAWER 7, Y5N ONE ×2 (07:35→10:33)
[2016-09-23 07:37] LABS: BASOPHIL 0.4 % (0-2.0); EOSINOPHIL 1.1 % (0-4.5); MCH 29.5 pg (25.7-33.7); MCHC 34.1 g/dl (32.0-36.0); MEAN CELL VOLUME 86.7 fl (80-96); MEAN PLT VOLUME 9.9 fl (7.5-11.1); NEUTROPHILS 54.8 % (42.8-82.8); PLATELET COUNT 174 K/MM3 (134-434); RDW 12.8 % (11.6-15.6); WHITE BLOOD COUNT 5.1 K/mm3 (4.0-10.0)
--- NOTE | 2016-09-23 10:09 | DS ---
Physical Exam: SUBJECTIVE: Patient seen and examined Patient restign in bed NAD. No acute events, no events on telemetry. afebrile and hemodynamically stable. stillr eports palpitations and mild nausea. reproducible chest pain resolved. Denies sob, n/v, abd pain, loc, diarrhea, constipation, dysuria. OBJECTIVE: Vital Signs Period Temp Pulse Resp BP Sys/Ortega Pulse Ox Last 24 Hr 97.4 F-98.6 F 66-87 16-20 110-121/60-66 100 PHYSICAL EXAM GENERAL: Awake, alert, and fully oriented, in no acute distress. HEAD: Normal with no signs of trauma. EYES: Pupils equal, round and reactive to light, extraocular movements intact, sclera anicteric, conjunctiva clear. No lid lag. EARS, NOSE, THROAT: Moist mucous membranes. NECK: supple, no tyromegaly, nodular thyroid gland, nontender, no adenopathy LUNGS: Breath sounds equal, clear to auscultation bilaterally. HEART: Regular rate and rhythm, normal S1 and S2 ABDOMEN: soft, mildy tender epigastric region, + bowel sounds, no masses MUSCULOSKELETAL: No CVA tenderness, tender LE b/l . UPPER EXTREMITIES: 2+ pulses, warm, well-perfused. No cyanosis. No clubbing. No peripheral edema, + tremors . LOWER EXTREMITIES: 2+ pulses, warm, well-perfused. diffusely tender No peripheral edema. NEUROLOGICAL: Cranial nerves II-XII grossly intact. Normal speech. PSYCHIATRIC: Cooperative. Good eye contact. Appropriate mood and affect. SKIN: Warm, dry LABS Laboratory Results - last 24 hr 09/20/16 09/23/16 21:00 05:35 WBC 5.1 D RBC 4.20 Hgb 12.4 D Hct 36.4 MCV 86.7 MCHC 34.1 RDW 12.8 Plt Count 174 MPV 9.9 Neutrophils % 54.8 Lymphocytes % 28.1 Monocytes % 15.6 H Eosinophils % 1.1 D Basophils % 0.4 TSH Receptor Block Ab 2.88 H HOSPITAL COURSE: Date of Admission:09/20/16 This is a 55 yo f with PMH of HTN, gerd and anxiety, who presents to ed with palpitations and chest pain. She states that she had occasional chest pain winter 2015, at which time she had a negative TTE and stress test in this hospital (seen by Dr Patel). Current chest pain is intermittent and reproducible by pressing on chest wall. Present palpitaions, aggravated by physical activity , increased exertional dyspnea and lightheadedness, stiff and achy legs, over the past few days she developed severe hand tremors and couldnt write. 10 lb weight gain over the past year, heat and cold intolerance, sweating and anxiety. No family history of thyroid disease. She was diagnosed with Symptomatic hyperthyroidism/thyrotoxicosis due to Graves disease. He significant labs were: TSH <0.01, Free t4 2.84, TSH Receptor Ab 2.88. She was evaluated by [facility] and started on propranolol and tapazole. She was advised to see endocrinology outpatient for i123 scan and thyroid sonogram. She was evaluated by cardiology while in telemetry and had a repeat echocardiogram. Her chest pain was determined to be not of acute cardiac causes. Date of Discharge: 09/23/16 Minutes to complete discharge: 30 (na) Discharge Summary Reason For Visit: PALPITATIONS; HYPOTHYROIDISM Current Active Problems Anxiety disorder (Acute) Atypical chest pain (Acute) Chest pain (Acute) DVT prophylaxis (Acute) Hyperthyroidism (Acute) Labile essential hypertension (Acute) Mitral valve prolapse syndrome (Acute) Palpitations (Acute) Panic attack (Acute) Condition: Stable - Instructions Diet, Activity, Other Instructions: you were diagnosed with Symptomatic hyperthyroidism/thyrotoxicosis due to Graves disease. You were evaluated by [facility] and started on propranolol (medication that treats palpitations symptoms) and tapazole (medication that suppresses thyroid activity). These medications are not a definitive treatment. You will need to see an [facility] as soon as possible for i123 scan and thyroid sonogram. You will eventually need either iodine treatment or thyroidectomy surgery. You were seen by cardiology while in telemetry and had a repeat echocardiogram. Your chest pain was determined to be not due to acute cardiac causes. Please return to hospital if symptoms return. Referrals: Niesha Rosa MD [Staff Physician] - José Luis Norris MD [Staff Physician] - Disposition: HOME - Home Medications Comprehensive Discharge Medication List: Ambulatory Orders NK [No Known Home Medication] 09/20/16 Problem List - Problems (1) Anxiety disorder Code(s): F41.9 - ANXIETY DISORDER, UNSPECIFIED Qualifiers: Anxiety disorder type: generalized anxiety disorder Qualified Code(s ): F41.1 - Generalized anxiety disorder (2) Atypical chest pain Code(s): R07.89 - OTHER CHEST PAIN (3) Chest pain Code(s): R07.9 - CHEST PAIN, UNSPECIFIED Qualifiers: Chest pain type: unspecified Qualified Code(s): R07.9 - Chest pain, unspecified (4) DVT prophylaxis Code(s): [id number] - (5) Hyperthyroidism Code(s): E05.90 - THYROTOXICOSIS, UNSP WITHOUT THYROTOXIC CRISIS OR STORM (6) Palpitations Code(s): R00.2 - PALPITATIONS This patient is new to me today: No Emergency Visit: Yes ED Registration Date: 09/20/16 Care time: The patient presented to the Emergency Department on the above date and was hospitalized for further evaluation of their emergent condition. Critical Care patient: No - Discharge Referral Referred to [facility] Med P.C.: Yes Physician Referral: Rey Lord MD (Int Med)
[2016-09-23] MEDS: HEPARIN NA (PORCINE) 5,000 UNITS/ML 1ML VIAL SQ SCH (10:36)
[2016-09-23 14:00] VITALS: BP 121/69; PULSE 80; TEMP 98.9
--- NOTE | 2016-09-23 14:00 | PN ---
Progress Note, Physician Chief Complaint: Events noted Not in distress History of Present Illness: Patient was seen and examined. Awake and alert. Chart was reviewed Denies chest pain, SOB or palpitation - Current Medication List Current Medications: Active Medications Acetaminophen (Tylenol -) 650 mg PO Q4H PRN PRN Reason: FEVER OR PAIN Last Admin: 09/21/16 00:10 Dose: 650 mg Heparin Sodium (Porcine) (Heparin -) 5,000 unit SQ BID [facility] Last Admin: 09/23/16 10:36 Dose: 5,000 unit Methimazole (Tapazole -) 10 mg PO TID [facility] Last Admin: 09/23/16 06:41 Dose: 10 mg Propranolol HCl (Inderal La -) 60 mg PO DAILY [facility] Last Admin: 09/23/16 10:36 Dose: 60 mg - Objective Vital Signs: Vital Signs Temperature 97.8 F 09/23/16 10:00 Pulse Rate 90 09/23/16 10:00 Respiratory Rate 18 09/23/16 10:00 Blood Pressure 112/61 09/23/16 10:00 O2 Sat by Pulse Oximetry (%) 98 09/23/16 09:00 Neck: Yes: Supple Cardiovascular: Yes: Regular Rate and Rhythm Respiratory: Yes: CTA Bilaterally Gastrointestinal: Yes: Normal Bowel Sounds, Soft. No: Tenderness Edema: No Labs: CBC, BMP 09/23/16 05:35 09/21/16 05:20 Problem List - Problems (1) Anxiety disorder Code(s): F41.9 - ANXIETY DISORDER, UNSPECIFIED Qualifiers: Anxiety disorder type: generalized anxiety disorder Qualified Code(s ): F41.1 - Generalized anxiety disorder (2) Atypical chest pain Code(s): R07.89 - OTHER CHEST PAIN (3) Hyperthyroidism Code(s): E05.90 - THYROTOXICOSIS, UNSP WITHOUT THYROTOXIC CRISIS OR STORM (4) Palpitations Code(s): R00.2 - PALPITATIONS Assessment/Plan 1. Chest pain syndrome with atypical features and palpitations 2. Hyperthyroidism 3. Anxiety disorder PLAN: 1. Continue Tapazole and continue Inderal LA as tolerated 2. Transthoracic echocardiography to assess LV and valvular function If above negative, discharge planning and follow up as outpatient with Endocrinology for hyperthyroidism Jorge Luis Patel MD
--- NOTE | 2016-09-23 14:51 | PN ---
Teaching Attending Note Name of Resident: Starr Mercedes ATTENDING PHYSICIAN STATEMENT I saw and evaluated the patient. I reviewed the resident's note and discussed the case with the resident. I agree with the resident's findings and plan as documented. Patient is a feeling better, still feeling the palpitations. Vital Signs Temperature 98.9 F 09/23/16 13:59 Pulse Rate 80 09/23/16 13:59 Respiratory Rate 20 09/23/16 13:59 Blood Pressure 121/69 09/23/16 13:59 O2 Sat by Pulse Oximetry (%) 98 09/23/16 09:00 CBCD WBC 5.1 K/mm3 (4.0-10.0) D 09/23/16 05:35 RBC 4.20 M/mm3 (3.60-5.2) 09/23/16 05:35 Hgb 12.4 GM/dL (10.7-15.3) D 09/23/16 05:35 Hct 36.4 % (32.4-45.2) 09/23/16 05:35 MCV 86.7 fl (80-96) 09/23/16 05:35 MCHC 34.1 g/dl (32.0-36.0) 09/23/16 05:35 RDW 12.8 % (11.6-15.6) 09/23/16 05:35 Plt Count 174 K/MM3 (134-434) 09/23/16 05:35 MPV 9.9 fl (7.5-11.1) 09/23/16 05:35 CMP Sodium 142 mmol/L (136-145) 09/21/16 05:20 Potassium 3.9 mmol/L (3.5-5.1) 09/21/16 05:20 Chloride 107 mmol/L (98-107) 09/21/16 05:20 Carbon Dioxide 26 mmol/L (21-32) 09/21/16 05:20 Anion Gap 9 (8-16) 09/21/16 05:20 BUN 21 mg/dL (7-18) H 09/21/16 05:20 Creatinine 0.4 mg/dL (0.55-1.02) L 09/21/16 05:20 Creat Clearance w eGFR > 60 (>60) 09/21/16 05:20 Random Glucose 89 mg/dL (74-106) 09/21/16 05:20 Calcium 8.8 mg/dL (8.5-10.1) 09/21/16 05:20 Total Bilirubin 0.9 mg/dL (0.2-1.0) 09/21/16 05:20 AST 24 U/L (15-37) 09/21/16 05:20 ALT 38 U/L (12-78) 09/21/16 05:20 Alkaline Phosphatase 44 U/L (45-117) L 09/21/16 05:20 Total Protein 5.4 g/dl (6.4-8.2) L 09/21/16 05:20 Albumin 2.9 g/dl (3.4-5.0) L 09/21/16 05:20 CARDIAC ENZYMES Creatine Kinase 67 IU/L (26-192) 09/21/16 11:40 Troponin I < 0.02 ng/ml (0.00-0.05) 09/21/16 11:40 Current Medications Generic Name Dose Route Start Last Admin Trade Name Delfinoq PRN Reason Stop Dose Admin Acetaminophen 650 mg 09/20/16 18:59 09/21/16 00:10 Tylenol - PO 650 mg Q4H PRN Administration FEVER OR PAIN Heparin Sodium (Porcine) 5,000 unit 09/20/16 22:00 09/23/16 10:36 Heparin - SQ 5,000 unit BID SU Administration Methimazole 10 mg 09/21/16 19:00 09/23/16 14:28 Tapazole - PO 10 mg TID SU Administration Propranolol HCl 60 mg 09/22/16 10:00 09/23/16 10:36 Inderal La - PO 60 mg DAILY SU Administration Home Medications Medication Instructions Recorded Methimazole [Tapazole -] 10 mg PO TID #90 tablet 09/23/16 Propranolol HCl [Inderal LA -] 60 mg PO DAILY #30 tab 09/23/16 Laboratory Tests 09/20/16 09/20/16 09/20/16 11:40 11:40 13:00 WBC 5.1 D TSH < 0.01 L D Free T4 2.84 H D Free T3 18.6 H TSH Receptor Block Ab 09/20/16 09/21/16 21:00 05:20 WBC 3.9 L TSH Free T4 Free T3 TSH Receptor Block Ab 2.88 H ASSESSMENT AND PLAN: This is a 55 yo f with PMHx of HTN, gerd and anxiety, who presents to ED. with palpitations and chest pain c/o having cold intolerance, weight . She states that she had occasional chest pain winter 2015, at which time she had a negative TTE and stress test in this hospital. # Newly diagnosed hyperthyroidism with T3 thyrotoxicosis; Grave's disease :TSH < 0.01 ; Free t4 2.84 , and FT3 18.6 , will increase her Inderal LA Dose to 80mg from Inderal 60mg daily for now.Thyroid US ordered as an outpatient, Endocrinology consult follow with. Continue with Tapazole # Acute Leukopenia improved back to a normal level, recheck CBC is back to normal range . # Atypical chest pain resolved given a dose of Ultram with negative Troponins. #HTN on Inderal 80mg Sr continue
== END 2016-09-23 17:17 | disposition home or self-care (01) | DRG 424 ==
LOC: JER 09:30 → JERBED 15:20 → J4W 18:25 → OBSVTOIN 19:00
PROVIDERS: ADMIT Internal Medicine; ATTEND Internal Medicine
DX: E05.00 Thyrotoxicosis with diffuse goiter without thyrotoxic crisis or storm (principal); K21.9 Gastro-esophageal reflux disease without esophagitis; I10 Essential (primary) hypertension; R25.1 Tremor, unspecified; F41.1 Generalized anxiety disorder; R00.2 Palpitations; R07.9 Chest pain, unspecified; D72.819 Decreased white blood cell count, unspecified
CPT/HCPCS: 36415; 71010-TC; 80053; 81003; 81015; 82550; 83520; 83690; 84439; 84443; 84481; 84484; 85025; 85027; 93005; 93010; 93306-TC; 99285-25; G0378; J1644

== ENCOUNTER 2018-02-11 12:34 | Emergency (ER) | payer OTHER ==
[2018-02-11 12:49] VITALS: BMI 19.1
--- NOTE | 2018-02-11 14:12 | PDOC ---
History of Present Illness - General Chief Complaint: Pain, Acute Stated Complaint: finger pain and blue - History of Present Illness Initial Comments: 57-year-old female with a past medical history significant for hypertension presents for evaluation of chest palpitations and pressure worse this morning however she has this problem over the last 2 years. She also complains of discoloration in her right ring finger. She has no radiation of symptoms. 02/11/18 14:09 Past History - Past Medical History Allergies/Adverse Reactions: Allergies Allergy/AdvReac Type Severity Reaction Status Date / Time No Known Allergies Allergy Verified 02/11/18 12:45 Home Medications: Ambulatory Orders Methimazole [Tapazole -] 10 mg PO TID #90 tablet 09/23/16 Propranolol HCl 80 mg PO DAILY #30 tablet 09/23/16 CVA: Yes COPD: No GI Disorders: Yes (GERD) HTN: Yes Thyroid Disease: Yes - Surgical History Appendectomy: Yes - Immunization History Immunization Up to Date: Yes - Suicide/Smoking/Psychosocial Hx Smoking History: Never smoked Hx Alcohol Use: Yes (social) Drug/Substance Use Hx: No Substance Use Type: Alcohol Review of Systems - Review of Systems Cardiac (ROS): Yes: Irregular Heart Rate, Palpitations, Chest Tightness All Other Systems: Reviewed and Negative *Physical Exam - Vital Signs Last Vital Signs Temp Pulse Resp BP Pulse Ox 98.1 F 92 H 18 113/76 98 02/11/18 12:45 02/11/18 12:45 02/11/18 12:45 02/11/18 12:45 02/11/18 12:45 - Physical Exam Comments: HEAD: NC/AT EYES: Conjuntiva clear Ears: Canals and TM's normal NOSE: No d/c THROAT: Moist mucous membrances, oral pharanx clear, uvula midline NECK: Supple without adenopathy CARDIAC: S1 S2 LUNGS: CTA Full and Equal breath sounds ABDOMEN: Soft NT ND MS: Full ROM in all joints without edema NEUROLOGIC: No gross sensory or motor deficits, NVID SKIN: Normal color and temperature no lesions or rashes 02/11/18 14:10 The right ring finger has some dusky discoloration on the ulnar aspect of the skin overlying the PIPJ she has no gross sensorimotor deficits and capillary refill is less than 2 seconds her skin color and temperature are otherwise normal Medical Decision Making - Medical Decision Making This 57-year-old female needs a cardiac workup I will transfer her to the main ER. 02/11/18 14:10 *DC/Admit/Observation/Transfer Diagnosis at time of Disposition: Heart palpitations - Referrals - Patient Instructions - Post Discharge Activity
--- NOTE | 2018-02-11 15:59 | PDOC ---
*Physical Exam - Vital Signs Last Vital Signs Temp Pulse Resp BP Pulse Ox 98.1 F 63 14 124/83 100 02/11/18 12:45 02/11/18 15:32 02/11/18 15:32 02/11/18 15:32 02/11/18 15:35 - Physical Exam Comments: 02/11/18 16:59 Gen: aaox3, nad heent: EOMI, MMM heart: +s1s2 reg lungs: cta b/l abd: soft, nt/nd +bs ext: no c/c/e neuro: cn ii-xii grossly intact, no focal deficits Heart Score/ECG Review - ECG Intrepretation Comment:: 02/11/18 17:00 sinus at 64, nl axis, nl interval, no acute st/t wave findings ED Treatment Course - LABORATORY CBC & Chemistry Diagram: 02/11/18 15:30 02/11/18 15:30 Progress Note - Progress Note Progress Note: 57yo female with hx of palpitations and chest pain who follows with a hplc chemist at [facility] - on metoprolol presents for eval fo 3 episodes of cp today. States her BP is elevated every morning and her hr is high (140s). States she had a stress test about 6 months ago and had a normal echo. States she took her metoprolol this AM and felt her BP and hr didn't improve for hours. States she had 3 episodes of chest pressure that radiates to her axilla today - all lasting less than 30 min. States she gets sob with the event, no diaphoresis. Also developed ecchymosis to R ring finger during an episode - was swollen, now improved but ecchymotic - denies trauma. No recent f/c. No cough. no recent travel. no leg swelling/calf cramping. States at night her HR is <60 and bp is low. Pt states she has worn a halter with her hplc chemist in the past. Denies abd ledesma. no n/v/d. No dysuria. No other complaints. Medical Decision Making - Medical Decision Making 02/11/18 17:04 a/p: 57yo female with elevated bp today, chest pressure today, palpitations -hx of palpitations and HTN - on metoprolol -chest pressure todya - will check trop x 2, ekg, labs, tsh, dimer, cxr -will monitor -currently cp free and no palpitations - HR 70 during exam -will give asa -will monitor and reassess 02/11/18 20:46 pt without palpitations and without cp while in the ED follows with cards as outpt dimer negative throid TSH is low, but free t4 normal wbc wnl electrolytes stable discussed all labs and imaging pt with bruising to R fnger - no erythema, no warmth, able to flex and extend the finger without pain discussed all reasons to return to the ED and need for follow up with her hplc chemist as an oupt. *DC/Admit/Observation/Transfer Diagnosis at time of Disposition: Heart palpitations, Chest pain - Discharge Dispostion Disposition: HOME Condition at time of disposition: Stable Decision to Admit order: No - Referrals Referrals: Lavonne Topete MD [Staff Physician] - Ozzy Randolph MD [Staff Physician] - - Patient Instructions Printed Discharge Instructions: DI for Chest Pain, DI for Palpitations Additional Instructions: Please continue to take your metoprolol as prescribed. Please call your hplc chemist in the AM and schedule a follow up appointment. Please return to the ED with any further concerns or complaints. - Post Discharge Activity - Attestations Physician Attestion: 02/11/18 20:49 I, Dr. Briana Yuen, DO, attest that this document has been prepared under my direction and personally reviewed by me in its entirety. I further attest, that it accurately reflects all work, treatment, procedures and medical decision -making performed by me.
[2018-02-11 16:01] LABS: BASO % 0.6 % (0-2.0); EOS % 0.4 % (0-4.5); HEMOGLOBIN 14.6 GM/dL (10.7-15.3); LYMPH % 27.6 % (8-40); MCH 30.5 pg (25.7-33.7); MCHC 33.9 g/dl (32.0-36.0); MEAN PLT VOLUME 10.6 fl (7.5-11.1); NEUT % 64.4 % (42.8-82.8); PLATELET COUNT 193 K/MM3 (134-434); RBC 4.78 M/mm3 (3.60-5.2); RDW 13.7 % (11.6-15.6); WHITE BLOOD COUNT 5.8 K/mm3 (4.0-10.0)
[2018-02-11] MEDS ORDERED: ASPIRIN 81 MG CHEWABLE TABLETS PO ONE (16:12)
[2018-02-11 16:26] LABS: ALBUMIN 4.7 g/dl (3.4-5.0); ANION GAP 11 (8-16); BILIRUBIN,TOTAL 0.9 mg/dL (0.2-1.0); BLOOD UREA NITROGEN 15 mg/dL (7-18); CALCIUM 9.7 mg/dL (8.5-10.1); CHLORIDE 103 mmol/L (98-107); CO2 29 mmol/L (21-32); CREATININE 0.7 mg/dL (0.55-1.02); GLUCOSE,RANDOM 78 mg/dL (74-106); POTASSIUM 4.1 mmol/L (3.5-5.1); SGOT/AST 22 U/L (15-37); SGPT/ALT 30 U/L (12-78); SODIUM 143 mmol/L (136-145); TOT PROT 7.9 g/dl (6.4-8.2)
[2018-02-11 16:27] LABS: ALK PHOS 70 U/L (45-117)
[2018-02-11] MEDS ORDERED: ASPIRIN 81 MG CHEWABLE TABLETS ONE (16:42)
[2018-02-11 17:05] LABS: MAGNESIUM 2.2 mg/dL (1.8-2.4)
[2018-02-11 17:10] LABS: PROTHROMBIN TIME (PATIENT) 11.3 SEC (9.7-13.0)
[2018-02-11 17:13] LABS: ACTIVATED PTT 33.8 SECONDS (25.2-36.5)
[2018-02-11] MEDS ORDERED: ACETAMINOPHEN 500 MG TABLET (FP) PO ONE (20:50)
[2018-02-11 21:00] VITALS: BP 125/80; PULSE 75; TEMP 97.6
--- NOTE | 2018-02-12 16:48 | EKG ---
Test Reason : Blood Pressure : / mmHG Vent. Rate : 064 BPM Atrial Rate : 064 BPM P-R Int : 130 ms QRS Dur : 068 ms QT Int : 390 ms P-R-T Axes : 030 043 064 degrees QTc Int : 402 ms POOR DATA QUALITY, INTERPRETATION MAY BE ADVERSELY AFFECTED NORMAL SINUS RHYTHM NORMAL ECG WHEN COMPARED WITH ECG OF 21-SEP-2016 11:31, NONSPECIFIC T WAVE ABNORMALITY NO LONGER EVIDENT IN LATERAL LEADS Confirmed by JAIME LOWE, CAMERON ([id number]) on 02/12/2018 3:48:30 PM Referred By: Confirmed By:CAMERON SANDOVAL MD
== END 2018-02-11 21:01 | disposition home or self-care (01) ==
LOC: JERFT 12:34 → JER 12:34
DX: R00.2 Palpitations (principal)
CPT/HCPCS: 36415; 71046-TC-FY; 80053; 82550; 83735; 84439; 84443; 84484; 85025; 85379; 85610; 85730; 93005; 93010; 99283-25

== ENCOUNTER 2018-03-27 13:30 | Emergency (ER) | payer OTHER ==
--- NOTE | 2018-03-27 13:55 | PDOC ---
History of Present Illness - General Chief Complaint: Palpitations Stated Complaint: PALPITATION Time Seen by Provider: 03/27/18 13:46 History Source: Patient - History of Present Illness Timing/Duration: reports: resolved prior to arrival Past History - Past Medical History Allergies/Adverse Reactions: Allergies Allergy/AdvReac Type Severity Reaction Status Date / Time No Known Allergies Allergy Verified 03/27/18 14:01 Home Medications: Ambulatory Orders Metoprolol Succinate 25 mg PO DAILY 03/27/18 CVA: Yes COPD: No GI Disorders: Yes (GERD) HTN: Yes Thyroid Disease: Yes - Surgical History Appendectomy: Yes - Immunization History Immunization Up to Date: Yes - Suicide/Smoking/Psychosocial Hx Smoking History: Never smoked Hx Alcohol Use: Yes (social) Drug/Substance Use Hx: No Substance Use Type: Alcohol Review of Systems - Review of Systems Constitutional: No: Chills, Fever Respiratory: No: Shortness of Breath Cardiac (ROS): Yes: Palpitations. No: Chest Pain, Syncope ABD/GI: No: Nausea, Vomiting *Physical Exam - Vital Signs Last Vital Signs Temp Pulse Resp BP Pulse Ox 98.8 F 68 17 104/67 98 03/27/18 13:58 03/27/18 16:50 03/27/18 16:50 03/27/18 16:50 03/27/18 16:50 - Physical Exam General Appearance: Yes: Appropriately Dressed. No: Apparent Distress HEENT: positive: Normal Voice Neck: positive: Supple Respiratory/Chest: positive: Lungs Clear, Normal Breath Sounds. negative: Respiratory Distress Cardiovascular: positive: Regular Rate, S1, S2 Gastrointestinal/Abdominal: positive: Soft. negative: Tender Extremity: positive: Normal Inspection. negative: Pedal Edema Integumentary: positive: Dry, Warm Neurologic: positive: Fully Oriented, Alert, Normal Mood/Affect Heart Score/ECG Review - ECG Intrepretation Comment:: 03/27/18 13:57 Twelve-lead EKG was performed and reviewed by me. There is normal sinus rhythm with a normal rate. The axis is normal. The intervals are normal. There are no ST or T wave abnormalities. Impression: Normal twelve-lead EKG ED Treatment Course - LABORATORY CBC & Chemistry Diagram: 03/27/18 14:15 03/27/18 14:15 - ADDITIONAL ORDERS Additional order review: Laboratory Results 03/27/18 03/27/18 14:15 14:15 Sodium 141 Potassium 3.8 Chloride 109 H Carbon Dioxide 27 Anion Gap 6 L BUN 9 Creatinine 0.5 L Creat Clearance w eGFR > 60 Random Glucose 89 Calcium 8.7 Total Bilirubin 1.0 AST 16 ALT 23 Alkaline Phosphatase 53 Creatine Kinase 105 Troponin I < 0.02 B-Natriuretic Peptide 235.6 H Total Protein 6.5 Albumin 3.6 TSH 0.02 L Free T4 0.99 Resin T3 Uptake 33.9 03/27/18 14:15 RBC 4.18 MCV 89.4 MCHC 34.1 RDW 13.4 MPV 10.2 Neutrophils % 63.8 Lymphocytes % 24.9 Monocytes % 9.6 Eosinophils % 0.8 D Basophils % 0.9 - RADIOLOGY Radiology Studies Ordered: Category Date Time Status CHEST X-RAY PORTABLE* [RAD] Stat Radiology 03/27/18 13:51 Ordered Medical Decision Making - Medical Decision Making 03/27/18 13:53 57 yo F, h/o HTN, anxiety, hyperthyroid, GERD, here w/ palpitations. Patient states yesterday she developed vague chest pain with palpitations and headache. Was seen at [facility] and had negative workup including EKG, labs and CT head per patient. Patient states chest pain and headache has since resolved, but today developed palpitations in the setting of checking her blood pressure. States blood pressure was 170s over 100 when she checked it so decided to come into ED. Reports her heart rate at home was 118. States symptoms have since improved. No chest pain, shortness of breath, diaphoresis, nausea or vomiting. S/p negative echo and stress test 6 months ago. Follows up with cardiology in [place]. Of note, patient was seen in our ED last month for atypical chest pain was ruled out in ER. TSH at that time was 0.11 with normal T4 See exam Palpitations Recurrent Since resolved Known hyperthyroidism on meds, TSH 0.11 w/ nl T4 in ED 02/21 Neg stress/echo 6 months ago No known RF for DVT/PE ?anxiety component -ekg -cxr -labs including thyroid tests r/o thyrotoxicosis Elevated BP at home today BP wnl in ED Anxiety may play role based on hx -ekg -cxr -labs -anticipate dc w/ cards f/u 03/27/18 15:08 TSH 0.02! T4 0.99, T3 pending. Refuses CXR as she had one yesterday at [facility] per pt. Pt remains stable on monitor. Does not appear anxious at this time or agitated. Patient states she was on methimazole until April of last year, but taken off as she was told she was euthyroid. Has had thyroid imaging in past but does not remember results. Follows up with ironing pleater in [place], but states she sees different providers and does not know any of their names. I contacted facility at [phone] and [phone] but unable to reach ironing pleater. Will contact endo here to discuss dispo/management 03/27/18 16:58 After several attempts at paging and calling provider's cell phone, Dr Norris has not returned my call. Case was again discussed with ED attending, and a decision was made that patient was stable to be discharged. Based on clinical impression, unlikely ACS or PE. Patient not currently in thyroid storm/ thyrotoxicosis. Remains stable at this time and currently asymptomatic. We feel that patient is presently safe to be discharged, but given strict instructions to contact her ironing pleater on Friday for further evaluation and management. Patient given strict return precautions such as worsening anxiety, recurrent/persistent palpitations, SOB, CP, etc. present during discussion and feels safe taking patient home 03/27/18 17:[address] Norris, who finally returned call, agrees with discharge to follow-up with patient's ironing pleater. *DC/Admit/Observation/Transfer Diagnosis at time of Disposition: Palpitations, Hyperthyroidism - Discharge Dispostion Disposition: HOME Condition at time of disposition: Improved - Referrals - Patient Instructions Printed Discharge Instructions: Hyperthyroidism Additional Instructions: Your TSH today was 0.02 and T4 was 0.99 today. Your EKG and labs were unremarkable otherwise. We attempted to contact your ironing pleater at [place] but was unable to reach M.Alley. We were also unable to reach our ironing pleater at [facility]. You need to contact your ironing pleater first thing Friday morning for further evaluation and management of your hyperthyroid. You may need to be restarted on your methimazole. In the interim, if symptoms recur and/or worsen, return to the ER immediately - Post Discharge Activity
[2018-03-27 14:03] VITALS: TEMP 98.8; BMI 22.4
--- NOTE | 2018-03-27 14:21 | PDOC ---
*Physical Exam - Vital Signs Last Vital Signs Temp Pulse Resp BP Pulse Ox 98.8 F 62 17 118/72 98 03/27/18 13:58 03/27/18 13:58 03/27/18 13:58 03/27/18 13:58 03/27/18 13:58 Medical Decision Making - Medical Decision Making 03/27/18 14:21 Vital Signs Temp Pulse Resp BP Pulse Ox 98.8 F 62 17 118/72 98 03/27/18 13:58 03/27/18 13:58 03/27/18 13:58 03/27/18 13:58 03/27/18 13:58 Case discussed with EZEKIEL Carranza. Plan as per EZEKIEL.
[2018-03-27 14:30] LABS: BASO % 0.9 % (0-2.0); EOS % 0.8 % (0-4.5); HEMATOCRIT 37.4 % (32.4-45.2); HEMOGLOBIN 12.7 GM/dL (10.7-15.3); LYMPH % 24.9 % (8-40); MCH 30.5 pg (25.7-33.7); MCHC 34.1 g/dl (32.0-36.0); MEAN CELL VOLUME 89.4 fl (80-96); MEAN PLT VOLUME 10.2 fl (7.5-11.1); MONO % 9.6 % (3.8-10.2); NEUT % 63.8 % (42.8-82.8); PLATELET COUNT 171 K/MM3 (134-434); RBC 4.18 M/mm3 (3.60-5.2); RDW 13.4 % (11.6-15.6)
[2018-03-27 15:03] LABS: ALBUMIN 3.6 g/dl (3.4-5.0); ALK PHOS 53 U/L (45-117); ANION GAP 6 MMOL/L (8-16); BLOOD UREA NITROGEN 9 mg/dL (7-18); CALCIUM 8.7 mg/dL (8.5-10.1); CHLORIDE 109 mmol/L (98-107); CO2 27 mmol/L (21-32); CREATININE 0.5 mg/dL (0.55-1.3); GLUCOSE,RANDOM 89 mg/dL (74-106); POTASSIUM 3.8 mmol/L (3.5-5.1); SGOT/AST 16 U/L (15-37); SGPT/ALT 23 U/L (13-61); SODIUM 141 mmol/L (136-145); TOT PROT 6.5 g/dl (6.4-8.2)
[2018-03-27 15:07] LABS: N-TERMINAL BNP 235.6 pg/ml (5-125)
[2018-03-27 16:51] VITALS: BP 104/67; PULSE 68
--- NOTE | 2018-03-28 15:36 | EKG ---
Test Reason : Blood Pressure : / mmHG Vent. Rate : 060 BPM Atrial Rate : 060 BPM P-R Int : 130 ms QRS Dur : 076 ms QT Int : 390 ms P-R-T Axes : 019 038 056 degrees QTc Int : 390 ms NORMAL SINUS RHYTHM NORMAL ECG WHEN COMPARED WITH ECG OF 11-FEB-2018 15:56, NO SIGNIFICANT CHANGE WAS FOUND Confirmed by MD Malave Daniel ([id number]) on 03/28/2018 3:36:11 PM Referred By: Confirmed By:Delmer Malave MD
== END 2018-03-27 17:10 | disposition home or self-care (01) ==
LOC: JER 13:30
DX: R00.2 Palpitations (principal); E05.90 Thyrotoxicosis, unspecified without thyrotoxic crisis or storm
CPT/HCPCS: 36415; 80053; 82550; 83880; 84436; 84439; 84443; 84479; 84481; 84484; 85025; 93005; 93010; 99284-25

== ENCOUNTER 2019-01-29 22:54 | Emergency (ER) | payer OTHER ==
[2019-01-29 23:08] VITALS: TEMP 97.6; BMI 27.4
[2019-01-30 00:31] LABS: BASO % 0.7 % (0-2.0); EOS % 0.4 % (0-4.5); HEMATOCRIT 40.1 % (32.4-45.2); HEMOGLOBIN 13.8 GM/dL (10.7-15.3); LYMPH % 17.7 % (8-40); MCH 30.6 pg (25.7-33.7); MCHC 34.4 g/dl (32.0-36.0); MEAN CELL VOLUME 88.9 fl (80-96); MEAN PLT VOLUME 10.2 fl (7.5-11.1); MONO % 6.8 % (3.8-10.2); NEUT % 74.4 % (42.8-82.8); PLATELET COUNT 181 K/MM3 (134-434); RDW 13.8 % (11.6-15.6); WHITE BLOOD COUNT 6.5 K/mm3 (4.0-10.0)
--- NOTE | 2019-01-30 00:38 | PDOC ---
History of Present Illness - General Chief Complaint: Chest Pain Stated Complaint: DIZZINESS Time Seen by Provider: 01/29/19 23:29 History Source: Patient Exam Limitations: No Limitations - History of Present Illness Initial Comments: 01/30/19 00:34 58 yo female pmh of hyperthyroidsm, anxiety presents to the ED for 3 days of non exertional CP, labile BP and HR. Pt states the CP is non exertional, radiates to her back and down her left arm, no exacerbating or relieving factors , when pain is significant admits to diaphoresis and palpitations. Pt admits to multiple similar episodes in the past, gets admitted for Cardiac work up in [facility] and has always been negative. Stress test 2 months ago reported normal, does not know name of alterations tailor. Pt states she checks her BP and heart rate frequently which have been very labile recently Past History - Past Medical History Allergies/Adverse Reactions: Allergies Allergy/AdvReac Type Severity Reaction Status Date / Time No Known Allergies Allergy Verified 03/27/18 14:01 Home Medications: Ambulatory Orders Metoprolol Succinate 25 mg PO DAILY 03/27/18 CVA: Yes COPD: No GI Disorders: Yes (GERD) HTN: Yes Thyroid Disease: Yes - Surgical History Appendectomy: Yes - Immunization History Immunization Up to Date: Yes - Suicide/Smoking/Psychosocial Hx Smoking History: Never smoked Have you smoked in the past 12 months: No Information on smoking cessation initiated: No Hx Alcohol Use: No Drug/Substance Use Hx: No Substance Use Type: Alcohol *Physical Exam - Vital Signs Last Vital Signs Temp Pulse Resp BP Pulse Ox 97.6 F 88 18 140/83 100 01/29/19 23:06 01/29/19 23:06 01/29/19 23:06 01/29/19 23:06 01/29/19 23:06 ED Treatment Course - LABORATORY CBC & Chemistry Diagram: 01/30/19 00:20 01/30/19 00:20 - ADDITIONAL ORDERS Additional order review: 01/30/19 00:20 RBC 4.50 MCV 88.9 MCHC 34.4 RDW 13.8 MPV 10.2 Neutrophils % 74.4 Lymphocytes % 17.7 D Monocytes % 6.8 Eosinophils % 0.4 Basophils % 0.7 - RADIOLOGY Radiology Studies Ordered: Category Date Time Status CHEST X-RAY PORTABLE* [RAD] Stat Radiology 01/30/19 00:00 Ordered *DC/Admit/Observation/Transfer Diagnosis at time of Disposition: Chest pain - Discharge Dispostion Disposition: HOME Condition at time of disposition: Stable Decision to Admit order: No - Referrals - Patient Instructions Printed Discharge Instructions: DI for Atypical Chest Pain, DI for Chest Pain Additional Instructions: Please see your Primary Hide Trimmer and Primary Doctor as soon as possible. Continue taking your home dosed medications as prescribed. Return to the ER for new or concerning symptoms including but not limited to: chest pain, difficulty breathing, fevers. Thank you - Post Discharge Activity
[2019-01-30 01:13] LABS: ALBUMIN 4.2 g/dl (3.4-5.0); ALK PHOS 67 U/L (45-117); ANION GAP 6 MMOL/L (8-16); BILIRUBIN,TOTAL 0.8 mg/dL (0.2-1); BLOOD UREA NITROGEN 15.2 mg/dL (7-18); CALCIUM 9.6 mg/dL (8.5-10.1); CHLORIDE 109 mmol/L (98-107); CO2 27 mmol/L (21-32); CREATININE 0.7 mg/dL (0.55-1.3); GLUCOSE,RANDOM 100 mg/dL (74-106); POTASSIUM 3.9 mmol/L (3.5-5.1); SGOT/AST 11 U/L (15-37); SGPT/ALT 19 U/L (13-61); SODIUM 143 mmol/L (136-145); TOT PROT 7.1 g/dl (6.4-8.2)
--- NOTE | 2019-01-30 02:01 | PDOC ---
Documentation entered by Shama Kendall SCRIBE, acting as scribe for Apryl Lopez MD. Apryl Lopez MD: This documentation has been prepared by the Enoch briggs Lincy, SCRIBE, under my direction and personally reviewed by me in its entirety. I confirm that the documentation accurately reflects all work, treatment, procedures, and medical decision making performed by me. Attending Attestation - Resident Resident Name: Ravi Hirsch - ED Attending Attestation I have performed the following: I have examined & evaluated the patient, The case was reviewed & discussed with the resident, I agree w/resident's findings & plan, Exceptions are as noted - HPI HPI: 01/30/19 01:35 The patient is a 58-year-old female with a past medical history significant for hyperthyroidism and anxiety presents to the emergency department with 3 days of nonexertional chest pain and fluctuating blood pressure and heart rate. The patient reports multiple ER visit for the same complaint. The patient states she gets admitted for cardiac work-ups, which has always been unremarkable. The patient reports having a stress test done about a year ago. The patient reports a history of HTN, and she was on Metoprolol and lisinopril, which was D/cc'ed secondary to an allergic reaction and unable to tolerate the medication. The patient reports she wasn't placed on other medicines. Patient's BP at ER today was 167/100. Allergies: NKDA - Physicial Exam PE: 01/30/19 01:57 awake alert lungs clear bilat heart rrr no mrg abd soft nt nd ext wwp . no edema. no calf tenderness. skin warm and dry. alert oriented x 3. - Medical Decision Making 01/30/19 01:58 58 yo F with h/o hyperthyroid, labile BP prior cardiac workup including stress and holter 1 yr ago, here today c/o palpitations and labile blood pressures, chest pain. pt states today her bp was 167/ 100. feeling lightheaded and anxious. also had intermittent chest pain. she has had several episodes similar in the past. 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 is not currently taking any medication for bp ( previously wqas on toprol and lisinopril) but didn't tolerate wel or was allergic. does have family h/o DE in father in 40's and uncle and her cousin. on exam pt normal exam. normal heart and lung exam. plan will obtain trop x 2, labs cxr and obs. if both negative. pt should return to process cheese cooker. Heart Score/ECG Review #1 General ECG Interpretation: Sinus Rhythm, Normal Rate (67), Normal Intervals, No acute ischemic changes
[2019-01-30 04:04] VITALS: BP 102/66; PULSE 60
[2019-01-30] MEDS ORDERED: SODIUM CHLORIDE 0.9% 500 ML INFUS.BAG IV ONE (04:06)
--- NOTE | 2019-01-31 10:41 | EKG ---
Test Reason : Blood Pressure : / mmHG Vent. Rate : 067 BPM Atrial Rate : 067 BPM P-R Int : 142 ms QRS Dur : 076 ms QT Int : 396 ms P-R-T Axes : 071 060 077 degrees QTc Int : 418 ms NORMAL SINUS RHYTHM NORMAL ECG WHEN COMPARED WITH ECG OF 27-MAR-2018 13:56, NO SIGNIFICANT CHANGE WAS FOUND Confirmed by ARMANDO MALONE MD ([id number]) on 01/31/2019 10:41:05 AM Referred By: Confirmed By:ARMANDO MALONE MD
== END 2019-01-30 04:59 | disposition home or self-care (01) ==
LOC: JER 22:54
PROC: 3E0337Z Introduction of Electrolytic and Water Balance Substance into Peripheral Vein, Percutaneous Approach (ICD-10-PCS; principal; 2019-01-29)
DX: R07.9 Chest pain, unspecified (principal); I10 Essential (primary) hypertension; E05.90 Thyrotoxicosis, unspecified without thyrotoxic crisis or storm
CPT/HCPCS: 36415; 71045-TC-FY; 80053; 82550; 83880; 84443; 84484; 85025; 93005; 93010; 99283-25

== ENCOUNTER 2021-04-11 00:46 | Emergency (ER) | payer OTHER ==
[2021-04-11 00:55] VITALS: BP 142/77; PULSE 76; TEMP 98.2; BMI 22.3
[2021-04-11] MEDS ORDERED: ACETAMINOPHEN 650 MG/20.3 ML ORAL SOLUTION (CUPS) PO ONE (01:51)
[2021-04-11] MEDS ORDERED: ACETAMINOPHEN 325 MG TABLET (FP) ONE (02:12)
[2021-04-11 04:26] LABS: BASO % 0.6 % (0-2.0); EOS % 0.5 % (0-4.5); HEMATOCRIT 37.6 % (32.4-45.2); HEMOGLOBIN 12.9 GM/dL (10.7-15.3); LYMPH % 16.1 % (8-40); MCH 30.6 pg (25.7-33.7); MCHC 34.3 g/dl (32.0-36.0); MEAN CELL VOLUME 89.3 fl (80-96); MEAN PLT VOLUME 9.7 fl (7.5-11.1); MONO % 7.8 % (3.8-10.2); PLATELET COUNT 155 10^3/uL (134-434); RDW 13.6 % (11.6-15.6)
[2021-04-11 05:32] LABS: BLOOD UREA NITROGEN 24.2 mg/dL (7-18); CREATININE 0.6 mg/dL (0.55-1.3); GLUCOSE,RANDOM 90 mg/dL (74-106); SODIUM 141 mmol/L (136-145)
[2021-04-11 05:33] LABS: ALBUMIN 3.8 g/dl (3.4-5.0); ANION GAP 8 MMOL/L (8-16); BILIRUBIN,TOTAL 0.6 mg/dL (0.2-1); CALCIUM 8.8 mg/dL (8.5-10.1); CHLORIDE 108 mmol/L (98-107); CO2 25 mmol/L (21-32); MAGNESIUM 1.8 mg/dL (1.8-2.4); TOT PROT 6.8 g/dl (6.4-8.2)
[2021-04-11 05:34] LABS: ALK PHOS 74 U/L (45-117); SGOT/AST 14 U/L (15-37); SGPT/ALT 21 U/L (13-61)
== END 2021-04-11 05:48 | disposition home or self-care (01) ==
LOC: JER 00:46
DX: E05.90 Thyrotoxicosis, unspecified without thyrotoxic crisis or storm (principal)
CPT/HCPCS: 36415; 71046-TC-FY; 80053; 82550; 82553; 83735; 84484; 85025; 93005; 93010; 99285-25

== ENCOUNTER 2022-04-03 17:57 | Emergency (ER) | payer OTHER ==
[2022-04-03 18:35] VITALS: TEMP 97.9; BMI 22.3
[2022-04-03] MEDS ORDERED: METOCLOPRAMIDE HCL INJECTION 10 MG/2 ML VIAL IVPB ONE (18:45)
[2022-04-03] MEDS ORDERED: ACETAMINOPHEN 1000 MG/100 ML BAG IVPB ONE (18:45)
[2022-04-03] MEDS ORDERED: SODIUM CHLORIDE 0.9% 500 ML INFUS.BAG IV ONE (18:45)
[2022-04-03] MEDS ORDERED: MECLIZINE HCL 25 MG TABLET (FP) PO ONE (18:55)
[2022-04-03 19:14] LABS: EOS % 0.8 % (0-4.5); HEMATOCRIT 41.6 % (32.4-45.2); LYMPH % 28.5 % (8-40); MCH 30.1 pg (25.7-33.7); MCHC 33.7 g/dl (32.0-36.0); MEAN CELL VOLUME 89.1 fl (80-96); MEAN PLT VOLUME 9.8 fl (7.5-11.1); MONO % 8.7 % (3.8-10.2); PLATELET COUNT 178 10^3/uL (134-434); RBC 4.67 M/mm3 (3.60-5.2); RDW 13.9 % (11.6-15.6); WHITE BLOOD COUNT 5.2 K/mm3 (4.0-10.0)
[2022-04-03] MEDS ORDERED: MECLIZINE HCL 25 MG TABLET (FP) ONE (19:28)
[2022-04-03] MEDS ORDERED: ACETAMINOPHEN INJECTION 100 ML IVPB ONE (19:28)
[2022-04-03] MEDS ORDERED: METOCLOPRAMIDE HCL INJECTION 10 MG/2 ML VIAL ONE (19:28)
[2022-04-03 19:34] LABS: ALBUMIN 4.6 g/dl (3.4-5.0); BLOOD UREA NITROGEN 12.8 mg/dL (7-18); MAGNESIUM 2.1 mg/dL (1.8-2.4)
[2022-04-03 19:37] LABS: CREATININE 0.8 mg/dL (0.55-1.3); PHOSPHOROUS 1.6 mg/dL (2.5-4.9)
[2022-04-03 19:38] LABS: BILIRUBIN,TOTAL 1.3 mg/dL (0.2-1)
[2022-04-03] MEDS ORDERED: NAPH,MB-DB/K PH,MBDB POWDER PACKET PO ONE (19:38)
[2022-04-03 19:39] LABS: TOT PROT 7.6 g/dl (6.4-8.2)
[2022-04-03] MEDS ORDERED: POTASSIUM CHLORIDE TABS 20 MEQ TABLET.ER (FP) PO ONE ×2 (19:39→19:44)
[2022-04-03] MEDS ORDERED: NAPH,MB-DB/K PH,MBDB POWDER PACKET ONE (19:44)
[2022-04-03 22:48] VITALS: BP 104/64; PULSE 63; RESP 18
== END 2022-04-03 22:49 | disposition home or self-care (01) ==
LOC: JER 17:57
PROC: 3E0333Z Introduction of Anti-inflammatory into Peripheral Vein, Percutaneous Approach (ICD-10-PCS; principal; 2022-04-03)
PROC: 3E033GC Introduction of Other Therapeutic Substance into Peripheral Vein, Percutaneous Approach (ICD-10-PCS; 2022-04-03)
DX: R00.2 Palpitations (principal); R42 Dizziness and giddiness
CPT/HCPCS: 36415; 70450-TC; 71045-TC-FY; 80053; 83735; 84100; 84439; 84443; 84484; 85025; 93005; 93010; 99285-25